=== PATIENT | female | born 1990 | race Caucasian/White ===

== ENCOUNTER 2017-09-04 09:54 | Emergency (ER) | payer OTHER ==
[~2017-09-04] VITALS: Ht 162.6 cm; Wt 55.3 kg
[~2017-09-04 09:54] MED LIST: AMOXICILLIN 50500 MG PO; ATIVAN0.5 M1 PO; BACTRIM DS TAB1 EACH PO; CEPHALEXIN 500500 M3 PO; CIPRO500 MG PO; CIPROFLOXACIN500 M1 PO; FLAGYL500 MG PO; HYDROCODONE-AP1 EAC6 PO; HYDROCODONE-APA1 TA1 PO; HYDROXYZINE PA100 MG PO; IBUPROFEN 800800 M1 PO; IBUPROFEN 800800 MG PO; LAMICTAL100 MG PO; NOHOMEMEDICATIONS; NORCO 5-325 TA1 EAC1 PO; NORCO 5-325 TA1 EACH PO; PYRIDIUM200 MG PO; TRAMADOL 50 MG50 MG PO; ULTRAM50 MG PO; ZOFRAN ODT4 MG PO
[2017-09-04 10:01] VITALS: BP 118/71
[2017-09-04 10:11] LABS: URINE BILIRUBIN NEGATIVE (Negative); URINE BLOOD 3+ (Negative); URINE CLARITY CLOUDY; URINE COLOR DARK YELLOW; URINE GLUCOSE-RANDOM NEGATIVE (Negative); URINE KETONES NEGATIVE (Negative); URINE NITRITE-REFLEX NEGATIVE (Negative); URINE PROTEIN 2+ (Negative); URINE SPECIFIC GRAVITY >= 1.030 (1.005-1.030); URINE UROBILINOGEN 0.2 E.U./dl (0.2-1.0)
[2017-09-04 10:13] LABS: URINE LEUKOCYTES-REFLEX 2+ (Negative)
[2017-09-04 10:17] LABS: CASTS None Seen /LPF (None Seen); CRYSTALS None Seen /LPF (None Seen); MUCUS 0-3 Light strn/LPF (None Seen); SQUAMOUS 0-3 Few /LPF (0-3)
[2017-09-04] MEDS ORDERED: BACTRIM DS TAB1 EACH PO (10:21)
[2017-09-04] MEDS ORDERED: PYRIDIUM200 MG PO (10:21)
[2018-04-12] MEDS ORDERED: ELIMITE60 GM TOP (05:52)
[2018-04-12] MEDS ORDERED: AMOXICILLIN 50500 MG PO (05:52)
== END 2017-09-04 10:35 | disposition home or self-care (01) ==
LOC: M.ERS 09:54
PROVIDERS: Family Medicine
DX: N39.0 Urinary tract infection, site not specified (principal); F41.9 Anxiety disorder, unspecified; F32.9 Major depressive disorder, single episode, unspecified; F17.210 Nicotine dependence, cigarettes, uncomplicated; Z98.890 Other specified postprocedural states; Z88.5 Allergy status to narcotic agent

== ENCOUNTER 2017-10-14 09:55 | Emergency (ER) | payer OTHER ==
[~2017-10-14] VITALS: Ht 165.1 cm; Wt 57.6 kg
[2017-10-14 10:16] LABS: URINE BILIRUBIN NEGATIVE (Negative); URINE BLOOD NEGATIVE (Negative); URINE CLARITY CLEAR; URINE COLOR YELLOW; URINE GLUCOSE-RANDOM NEGATIVE (Negative); URINE KETONES NEGATIVE (Negative); URINE LEUKOCYTES NEGATIVE (Negative); URINE NITRITE NEGATIVE (Negative); URINE PROTEIN NEGATIVE (Negative); URINE SPECIFIC GRAVITY 1.025 (1.005-1.030)
[2017-10-14 10:32] LABS: ABSOLUTE EOSINOPHILS 0.1 thou/uL (0.0-0.7); ABSOLUTE LYMPHOCYTES 1.7 thou/uL (0.8-5.3); ABSOLUTE MONOCYTES 0.3 thou/uL (0.0-1.2); ABSOLUTE NEUTROPHILS 2.6 thou/uL (1.6-8.1); BASOPHILS 0.7 %; EOSINOPHILS 2.9 %; HEMATOCRIT 40.3 % (37.0-47.0); HEMOGLOBIN 13.7 gm/dL (12.0-15.0); LYMPHOCYTES 35.5 %; MCH 29.9 pg (26.0-34.0); MCHC 34.1 g/dL (28.0-37.0); MCV 87.6 fL (80.0-100.0); MPV 8.7 fl. (7.2-11.1); NUCLEATED RBCS 0 /100WBC; PLATELET COUNT* 198 thou/uL (150-400); POLYS 53.9 %; RDW-CV 13.3 % (10.5-14.5); WBC 4.9 thou/uL (4.0-11.0)
[2017-10-14 10:37] LABS: CALCIUM 8.9 mg/dL (8.5-10.1); CREATININE 0.9 mg/dL (0.6-1.3); POTASSIUM 3.8 mmol/L (3.5-5.1)
[2017-10-14 10:44] LABS: ALBUMIN 3.8 g/dL (3.4-5.0); TOTAL BILIRUBIN 0.3 mg/dL (<0.1-1.0); TOTAL PROTEIN 7.5 g/dL (6.4-8.2)
[2017-10-14] MEDS ORDERED: NAPROSYN500 MG PO (11:47)
[2017-10-14] MEDS ORDERED: NORCO 5-325 TA1 EACH PO (11:47)
[2017-10-14 12:07] VITALS: BP 135/97
[2018-04-12] MEDS ORDERED: AMOXICILLIN 50500 MG PO (05:52)
[2018-04-12] MEDS ORDERED: ELIMITE60 GM TOP (05:52)
== END 2017-10-14 12:08 | disposition home or self-care (01) ==
LOC: M.ERS 09:55
PROVIDERS: Nurse Practitioner Family
DX: N83.202 Unspecified ovarian cyst, left side (principal); N83.201 Unspecified ovarian cyst, right side; Z20.2 Contact with and (suspected) exposure to infections with a predominantly sexual mode of transmission; F31.9 Bipolar disorder, unspecified; F17.210 Nicotine dependence, cigarettes, uncomplicated; Z88.6 Allergy status to analgesic agent

== ENCOUNTER → 2018-04-12 | Emergency (ER) | payer OTHER ==
[~2018-04-12] VITALS: Ht 162.6 cm; Wt 58.1 kg
[~2018-04-12] MED LIST changes: +ELIMITE60 GM TOP; +NAPROSYN500 MG PO
[2018-04-12 05:34] VITALS: BP 116/79
== END ==
LOC: M.ERS 05:29
DX: B86 Scabies (principal); F31.9 Bipolar disorder, unspecified; F41.9 Anxiety disorder, unspecified; F17.210 Nicotine dependence, cigarettes, uncomplicated; Z98.890 Other specified postprocedural states